=== PATIENT | female | born 1990 | race Caucasian/White ===

== ENCOUNTER 2018-02-24 11:03 | Emergency (ER) | payer OTHER ==
[~2018-02-24] VITALS: Ht 162.6 cm; Wt 59.0 kg
[2018-02-24] MEDS ORDERED: NAPROXEN25 GM (12:08)
[2018-02-24] MEDS ORDERED: PROMETHAZINE W473 ML PO (16:34)
[2018-02-24] MEDS ORDERED: TESSALON PERLE100 M1 PO (16:34)
== END 2018-02-24 17:38 | disposition home or self-care (01) ==
LOC: ER 11:03
DX: R05 Cough (principal)